=== PATIENT | female | born 1975 | race Caucasian/White ===

== ENCOUNTER 2018-05-20 11:31 | Emergency (ER) | payer OTHER ==
[2018-05-20 12:48] LABS: Absolute Lymphocytes (CBC) 1.7 K/uL (0.7-4.9); Absolute Monocytes 0.5 K/uL (0.1-1.3); Absolute Neutrophil 10.4 K/uL (1.8-8.0); Basophils % 0.4 % (0-1.3); Eosinophils % 0.6 % (0-4.4); Hematocrit 41.6 % (36.0-45.0); Lymphocytes % 13.5 % (15.3-44.8); MPV 9.3 fL (7.6-11.3); Monocytes % 3.7 % (3.3-12.3); RBC Red Blood Cell Count 4.78 M/uL (3.86-4.86)
[2018-05-20] MEDS ORDERED: NA CHLORIDE 0.9% 1,000 ML ONE (12:49)
[2018-05-20] MEDS ORDERED: KETOROLAC 30 MG/ML INJ ONE (12:49)
[2018-05-20 13:03] LABS: ALT/SGPT 27 U/L (12-78); AST/SGOT 13 U/L (15-37); Albumin 3.5 g/dL (3.4-5.0); Alkaline Phosphatase 54 U/L (45-117); BUN Blood Urea Nitrogen 12 mg/dL (7-18); Bicarbonate 23 mmol/L (21-32); Bilirubin Direct 0.1 mg/dL (0-0.2); Bilirubin Total 0.4 mg/dL (0.2-1.0); Glucose Level 116 mg/dL (74-106); Lipase 149 U/L (73-393); Protein, Total 7.5 g/dL (6.4-8.2); Sodium Level 142 mmol/L (136-145)
[2018-05-20 13:18] LABS: Urine Blood 2+ (NEG); Urine Glucose NEGATIVE (NEG); Urine Protein 1+ (NEG)
[2018-05-20 13:26] LABS: Urine Bacteria 20-50 /HPF (<20)
[2018-05-20 13:27] LABS: Urine Culture Reflex Order REFLEXED
--- NOTE | 2018-05-20 14:34 | RAD REPORT ---
EXAM DESCRIPTION: CT - Stone Protocol - 05/20/2018 2:09 pm CLINICAL HISTORY: Abdominal pain. Right flank pain COMPARISON: None. TECHNIQUE: Computed axial tomography of the abdomen pelvis was obtained without oral or IV contrast. Lack of IV and oral contrast limits evaluation of solid organs, bowel, and vessels. Coronal reformat allan images were obtained and reviewed. All CT scans are performed using dose optimization technique as appropriate and may include automated exposure control or mA/KV adjustment according to patient size. FINDINGS: Multiple, bilateral renal calculi vary in size from 1-3 millimeters. Mild right hydronephr osis and right hydroureter. 3 millimeter calculus right ureteral vesicle junction Multiple low-density hepatic masses varying in size from a few millimeters to 2 centimeters. The sple en, pancreas and adrenals appear grossly normal There is no evidence of diverticulitis. The appendix appears normal Small umbilical hernia contains fat IMPRESSION: A 3 millimeter calculus right ureterovesical junction resulting in mild right hydronephr osis Multiple low-density hepatic lesions are nonspecific without IV contrast. I suspect these represent c ysts. This should be confirmed with nonemergent ultrasound 1
[2018-05-20] MEDS ORDERED: TAMSULOSIN 0.4 MG SR CAP ONE (15:46)
[2018-05-20] MEDS ORDERED: HYDROCODONE/APAP 10/325 TAB ONE (15:47)
[2018-05-20] MEDS ORDERED: MAGNESIUM SULFATE 1 gm IVPB 1 GM/100 ML BAG IV ONE (15:47)
[2018-05-20] MEDS ORDERED: CEFTRIAXONE/SWI 1gm 1 GM/10 ML SYR ONE (15:47)
--- NOTE | 2018-05-20 16:03 | ER ---
Nurse's Notes [facility] Name: Saray Ghosh Age: 42 yrs Sex: Female : 1975 Arrival Date: 05/20/2018 Time: 11:33 Bed 18 Private MD: Diagnosis: Calculus of kidney and ureter-right Presentation: 05/20 11:49 Presenting complaint: Patient states: i went for my walk and my RIGHT side started tw2 hurting, my side back and stomach, it feels like child labor pains, i woke up with a pressure in my pelvis i thought maybe i was getting a urinary tract infection. Transition of care: patient was not received from another setting of care. Onset of symptoms was May 20, 2018. Risk Assessment: Do you want to hurt yourself or someone else? Patient reports no desire to harm self or others. Initial Sepsis Screen: Does the patient meet any 2 criteria? No. Patient's initial sepsis screen is negative. Does the patient have a suspected source of infection? No. Patient's initial sepsis screen is negative. Care prior to arrival: None. 11:49 Method Of Arrival: Wheelchair tw2 11:49 Acuity: TIMOTHY 3 tw2 Triage Assessment: 11:51 General: Appears uncomfortable, Behavior is quiet. Pain: Complains of pain in right tw2 upper quadrant and right lower quadrant Pain radiates to back. GI: Reports lower abdominal pain, upper abdominal pain, nausea. 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 - Social history:: Smoking status: . - Ebola Screening: : Patient denies travel to an Ebola-affected area in the 21 days before illness onset. Screenin:57 Abuse screen: Denies threats or abuse. Denies injuries from another. Nutritional sv screening: No deficits noted. Tuberculosis screening: No symptoms or risk factors identified. Fall Risk None identified. Assessment: 12:35 General: Appears in no apparent distress. uncomfortable, well groomed, well developed, sv Behavior is calm, cooperative, appropriate for age. Pain: Complains of pain in posterior aspect of right lateral abdomen, anterior aspect of right lateral abdomen and right lower quadrant Pain currently is 10 out of 10 on a pain scale. Quality of pain is described as sharp, Pain began this morning Is continuous. Neuro: Level of Consciousness is awake, alert, obeys commands, Oriented to person, place, time, situation, Moves all extremities. Full function Gait is steady. Respiratory: Respiratory effort is even, unlabored, Respiratory pattern is regular, symmetrical. Derm: Skin is pink, warm \\T\\ dry. Musculoskeletal: Range of motion: intact in all extremities. 13:00 Reassessment: Patient appears in no apparent distress at this time. No changes from sv previously documented assessment. Patient and/or family updated on plan of care and expected duration. Pain level reassessed. Patient is alert, oriented x 3, equal unlabored respirations, skin warm/dry/pink. 15:47 Reassessment: Patient appears in no apparent distress at this time. Patient and/or sv family updated on plan of care and expected duration. Pain level reassessed. Patient is alert, oriented x 3, equal unlabored respirations, skin warm/dry/pink. Patient denies pain at this time. Patient states feeling better. Patient states symptoms have improved. 16:16 Reassessment: Pt to finish the magnesium sulfate infusion before discharge. sv 17:21 Reassessment: Patient appears in no apparent distress at this time. Patient and/or sv family updated on plan of care and expected duration. Pain level reassessed. Patient is alert, oriented x 3, equal unlabored respirations, skin warm/dry/pink. Patient denies pain at this time. Patient states feeling better. Patient states symptoms have improved. Vital Signs: 11:50 BP 114 / 78; Pulse 90; Resp 17; Temp 97.9(O); Pulse Ox 98% on R/A; Weight 95.25 kg (R); tw2 Height 5 ft. 4 in. (162.56 cm); Pain 10/10; 14:00 Pain 0/10; sv 14:41 BP 131 / 85; Pulse 99; Resp 16; Pulse Ox 100% ; Pain 0/10; sv 15:49 BP 129 / 77; Pulse 93; Resp 18; Pulse Ox 98% ; Pain 0/10; sv 11:50 Body Mass Index 36.05 (95.25 kg, 162.56 cm) tw2 ED Course: 11:33 Patient arrived in ED. as 11:50 Triage completed. tw2 11:50 Arm band placed on. tw2 11:55 Saúl Barnhart PA is PHCP. cp 11:55 Sebas Mata MD is Attending Physician. cp 11:57 Huma Anton RN is Primary Nurse. sv 11:57 Patient has correct armband on for positive identification. Placed in gown. Call light sv in reach. Door closed. Head of bed elevated. 12:41 Initial lab(s) drawn, by me, sent to lab. Inserted saline lock: 20 gauge in right em1 antecubital area, using aseptic technique. Blood collected. 14:07 CT completed. Patient tolerated procedure well. Patient moved to CT via wheelchair. sw Patient moved back from CT. 14:09 CT Stone Protocol In Process Unspecified. EDMS 16:02 Susie Chang MD is Referral Physician. cp 17:21 No provider procedures requiring assistance completed. IV discontinued, intact, sv bleeding controlled, No redness/swelling at site. Pressure dressing applied. Administered Medications: 13:01 Drug: TORadol 30 mg Route: IVP; Site: right antecubital; sv 14:00 Follow up: Pain 0/10 Adult; Response: No adverse reaction; Marked relief of symptoms; sv Pain is decreased 13:01 Drug: NS 0.9% 1000 ml Route: IV; Rate: 1 bolus; Site: right antecubital; sv 14:30 Follow up: Response: No adverse reaction; IV Status: Completed infusion; IV Intake: sv 1000ml 15:43 Drug: Rocephin - (cefTRIAXone) 1 grams Route: IVPB; Infused Over: 30 mins; Site: right sv antecubital; 15:46 Follow up: Response: No adverse reaction; IV Status: Completed infusion; IV Intake: 10mlsv 15:46 Drug: Magnesium Sulfate 1 grams Route: IVPB; Infused Over: 1 hrs; Site: right sv antecubital; 17:20 Follow up: Response: No adverse reaction; IV Status: Completed infusion; IV Intake: sv 100ml 15:46 Drug: Flomax 0.4 mg Route: PO; sv 17:20 Follow up: Response: No adverse reaction sv 15:46 Drug: HYDROcodone-acetaminophen 10 mg-325 mg 1 tabs Route: PO; sv 17:20 Follow up: Response: No adverse reaction sv Intake: 14:30 IV: 1000ml; Total: 1000ml. sv 15:46 IV: 10ml; Total: 1010ml. sv 17:20 IV: 100ml; Total: 1110ml. sv Outcome: 16:03 Discharge ordered by MD. cp 17:21 Discharged to home ambulatory. sv 17:21 Condition: stable 17:21 Discharge instructions given to patient, Instructed on discharge instructions, follow up and referral plans. no drinking with medication, no driving heavy equipment, medication usage, Demonstrated understanding of instructions, follow-up care, medications, Prescriptions given X 4. 18:05 Patient left the ED. sv Signatures: Dispatcher [employer] Huma Gallardo, RN RN Katrina Head, Brenden leon1 Yoselin Trujillo Corey, PA PA cp Wise, Tara RN RN tw2
--- NOTE | 2018-05-20 16:04 | EDPHYS ---
Physician Documentation [facility] Name: Saray Ghosh Age: 42 yrs Sex: Female : 1975 Arrival Date: 05/20/2018 Time: 11:33 Bed 18 Private MD: ED Physician Sebas Mata HPI: 05/20 12:10 This 42 yrs old Female presents to ER via Wheelchair with complaints of cp Abdominal Pain. 12:10 The patient presents with abdominal pain right side abdomen. cp 12:10 Onset: The symptoms/episode began/occurred this morning. The symptoms radiate to the cp right flank. Associated signs and symptoms: Pertinent positives: nausea, Pertinent negatives: blood in stools, chest pain, constipation, diarrhea, dysuria, fever, vomiting. 12:10 The symptoms are described as sharp. Severity of pain: in the emergency department the cp pain is a 10 / 10. 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 - Social history:: Smoking status: . - Ebola Screening: : Patient denies travel to an Ebola-affected area in the 21 days before illness onset. ROS: 12:15 Constitutional: Negative for body aches, chills, fever, poor PO intake. cp 12:15 Eyes: Negative for injury, pain, redness, and discharge. cp 12:15 ENT: Negative for drainage from ear(s), ear pain, sore throat, difficulty swallowing, difficulty handling secretions. 12:15 Cardiovascular: Negative for chest pain. 12:15 Respiratory: Negative for cough, shortness of breath, wheezing. 12:15 Abdomen/GI: Positive for abdominal pain, nausea, of the right lower quadrant and right upper quadrant, Negative for vomiting, diarrhea, constipation, black/tarry stool, rectal bleeding. 12:15 Back: Positive for flank pain, on the right. 12:15 : Negative for vaginal bleeding. 12:15 Skin: Negative for cellulitis, rash. 12:15 Neuro: Negative for altered mental status, headache, weakness. 12:15 All other systems are negative. Exam: 12:22 Constitutional: The patient appears in no acute distress, alert, awake, cp non-diaphoretic, non-toxic, well developed, well nourished, uncomfortable. 12:22 Head/Face: Normocephalic, atraumatic. cp 12:22 Eyes: Periorbital structures: appear normal, Conjunctiva: normal, no exudate, no injection, Sclera: no appreciated abnormality, Lids and lashes: appear normal, bilaterally. 12:22 ENT: External ear(s): are unremarkable, Nose: is normal, Mouth: Lips: moist, Oral mucosa: moist, Posterior pharynx: is normal, airway is patent, no erythema, no exudate. 12:22 Neck: ROM/movement: is normal, is supple, without pain, no range of motions limitations, no nuchal rigidity. 12:22 Chest/axilla: Inspection: normal, Palpation: is normal, no crepitus, no tenderness. 12:22 Cardiovascular: Rate: normal, Rhythm: regular. 12:22 Respiratory: the patient does not display signs of respiratory distress, Respirations: normal, no use of accessory muscles, no retractions, no splinting, no tachypnea, labored breathing, is not present, Breath sounds: are clear throughout, no decreased breath sounds, no stridor, no wheezing. 12:22 Abdomen/GI: Inspection: abdomen appears normal, Bowel sounds: active, all quadrants, Palpation: soft, moderate abdominal tenderness, in the right upper quadrant and right lower quadrant, rebound tenderness, is not appreciated, involuntary guarding, is not appreciated. 12:22 Back: CVA tenderness, is noted on the right. 12:22 Skin: no rash present. 12:22 Neuro: Orientation: to person, place \\T\\ time. Mentation: is normal, Cerebellar function: is grossly normal, Motor: moves all fours, strength is normal, Sensation: is normal. Vital Signs: 11:50 BP 114 / 78; Pulse 90; Resp 17; Temp 97.9(O); Pulse Ox 98% on R/A; Weight 95.25 kg (R); tw2 Height 5 ft. 4 in. (162.56 cm); Pain 10/10; 14:00 Pain 0/10; sv 14:41 BP 131 / 85; Pulse 99; Resp 16; Pulse Ox 100% ; Pain 0/10; sv 15:49 BP 129 / 77; Pulse 93; Resp 18; Pulse Ox 98% ; Pain 0/10; sv 11:50 Body Mass Index 36.05 (95.25 kg, 162.56 cm) tw2 MDM: 11:59 Patient medically screened. cp 13:00 Differential diagnosis: appendicitis, bowel obstruction, cholecystitis, Cholelithiasis, cp gastritis, pancreatitis, Pyelonephritis, Ureterolithiasis, urinary tract infection. 16:02 Data reviewed: vital signs, nurses notes, lab test result(s), radiologic studies, CT cp scan. 16:02 Counseling: I had a detailed discussion with the patient and/or guardian regarding: the cp historical points, exam findings, and any diagnostic results supporting the discharge/admit diagnosis, lab results, radiology results, to return to the emergency department if symptoms worsen or persist or if there are any questions or concerns that arise at home. Response to treatment: the patient's symptoms have markedly improved after treatment, VSS. Pain markedly improved. Will discharge to home for continued monitoring. 05/20 12:06 Order name: Basic Metabolic Panel; Complete Time: 14:59 cp 05/20 12:06 Order name: CBC with Diff; Complete Time: 14:59 cp 05/20 12:06 Order name: Creatinine for Radiology; Complete Time: 14:59 cp 05/20 12:06 Order name: Hepatic Function; Complete Time: 14:59 cp 05/20 12:06 Order name: Lipase; Complete Time: 14:59 cp 05/20 12:54 Order name: Urine Dipstick--Ancillary (enter results); Complete Time: 14:59 em1 05/20 12:06 Order name: CT Stone Protocol; Complete Time: 14:59 cp 05/20 12:54 Order name: Urine --Ancillary (enter results); Complete Time: 14:59 em1 05/20 12:55 Order name: Urine Microscopic Only; Complete Time: 14:59 cp 05/20 13:27 Order name: Urine Culture EDMS 05/20 12:06 Order name: IV Saline Lock; Complete Time: 12:42 cp 05/20 12:06 Order name: Labs collected and sent; Complete Time: 12:42 cp 05/20 12:06 Order name: Urine Dipstick-Ancillary (obtain specimen); Complete Time: 12:53 cp 05/20 12:06 Order name: Urine Test (obtain specimen); Complete Time: 12:53 cp 05/20 15:40 Order name: Strain Urine; Complete Time: 17:20 cp Administered Medications: 13:01 Drug: TORadol 30 mg Route: IVP; Site: right antecubital; sv 14:00 Follow up: Pain 0/10 Adult; Response: No adverse reaction; Marked relief of symptoms; sv Pain is decreased 13:01 Drug: NS 0.9% 1000 ml Route: IV; Rate: 1 bolus; Site: right antecubital; sv 14:30 Follow up: Response: No adverse reaction; IV Status: Completed infusion; IV Intake: sv 1000ml 15:43 Drug: Rocephin - (cefTRIAXone) 1 grams Route: IVPB; Infused Over: 30 mins; Site: right sv antecubital; 15:46 Follow up: Response: No adverse reaction; IV Status: Completed infusion; IV Intake: 10mlsv 15:46 Drug: Magnesium Sulfate 1 grams Route: IVPB; Infused Over: 1 hrs; Site: right sv antecubital; 17:20 Follow up: Response: No adverse reaction; IV Status: Completed infusion; IV Intake: sv 100ml 15:46 Drug: Flomax 0.4 mg Route: PO; sv 17:20 Follow up: Response: No adverse reaction sv 15:46 Drug: HYDROcodone-acetaminophen 10 mg-325 mg 1 tabs Route: PO; sv 17:20 Follow up: Response: No adverse reaction sv Disposition: 05/20/18 16:03 Discharged to Home. Impression: Calculus of kidney and ureter - right. - Condition is Stable. - Discharge Instructions: Kidney Stones. - Prescriptions for Tylenol- Codeine #3 300-30 mg Oral Tablet - take 2 tablets by ORAL route every 6 hours As needed; 20 tablet. Zofran 4 mg Oral Tablet - take 1 tablet by ORAL route every 12 hours As needed; 20 tablet. Flomax 0.4 mg Oral Capsule, Sust. Release 24 hr - take 1 capsule by ORAL route once daily As needed 1/2 hour following the same meal each day; 5 capsule. Cipro 500 mg Oral Tablet - take 1 tablet by ORAL route every 12 hours for 7 days; 14 tablet. - Medication Reconciliation Form, Thank You Letter, Antibiotic Education, Prescription Opioid Use form. - Follow up: Susie Chang MD; When: 1 - 2 days; Reason: pain continues. - Problem is new. - Symptoms have improved. Signatures: Dispatcher [employer] EDHuma Sales RN RN sv Saúl Barnhart PA PA cp Wise, Tara RN RN tw2 Corrections: (The following items were deleted from the chart) 18:05 16:03 05/20/2018 16:03 Discharged to Home. Impression: Calculus of kidney and ureter - sv right. Condition is Stable. Forms are Medication Reconciliation Form, Thank You Letter, Antibiotic Education, Prescription Opioid Use. Follow up: Ssuie Chang; When: 1 - 2 days; Reason: pain continues. Problem is new. Symptoms have improved. cp 05/21 17:41 05/20 12:10 The symptoms are described as achy, cp cp
== END 2018-05-20 18:05 | disposition home or self-care (01) ==
LOC: ER 11:31
DX: N20.2 Calculus of kidney with calculus of ureter (principal); I10 Essential (primary) hypertension
CPT/HCPCS: 36415; 74176; 76377; 80048; 80076; 81003; 81015; 81025; 83690; 85025; 87086; 87088; 96361; 96365; 96366; 96375; 99284; J0696; J3475; J7030